=== PATIENT | female | born 1995 | race Caucasian/White ===

== ENCOUNTER 2016-11-07 19:12 | Emergency (ER) | payer BC ==
[~2016-11-07] VITALS: Ht 157.5 cm; Wt 52.3 kg
[2016-11-07] MEDS ORDERED: PRAZ2CAP PO (19:31)
[2016-11-07] MEDS ORDERED: CLONI1TA PO (19:31)
[2016-11-07] MEDS ORDERED: MIRT30TA2 PO (19:31)
[2016-11-07] MEDS ORDERED: BUPR150T5 PO (19:31)
[2016-11-07] MEDS ORDERED: DEPA250T32 PO (19:31)
[2016-11-07] MEDS ORDERED: KETOROLAC 30 MG/ML VIAL (J1885) IV ONE (20:45)
[2016-11-07] MEDS ORDERED: ONDANSETRON 4MG/2ML VIAL (J2405) IV ONE (20:45)
[2016-11-07 21:03] LABS: BASO # 0.2 K/mm3 (0.0-0.2); BASO % 1.5 % (0.0-1.0); EOS # 0.2 K/mm3 (0.0-0.50); EOS % 1.6 % (0.0-3.0); LARGE UNSTAINED CELL # 0.2 K/mm3 (0.0-0.4); LARGE UNSTAINED CELL % 1.4 % (0.0-4.0); LYMPH # 3.3 K/mm3 (1.5-6.5); MEAN CORPUSCULAR HEMOGLOBIN 31.4 pg (27.0-33.0); MEAN CORPUSCULAR VOLUME 89.7 fl (80.0-96.0); MONO # 0.6 K/mm3 (0.0-0.8); MONO % 5.4 % (0.0-5.0); NEUTROPHILS # 6.2 K/mm3 (1.8-7.7); NEUTROPHILS % 59.1 % (36.0-66.0); PLATELET COUNT, AUTOMATED 266 k/mm3 (150-450); WHITE BLOOD COUNT 10.5 K/mm3 (4.0-10.0)
[2016-11-07 21:09] LABS: CONTROL LINE UCG INT CTR LINE PRESENT
[2016-11-07 21:26] LABS: AMYLASE 38 U/L (25-115); ANION GAP 8 MEQ/L (8-16); BLOOD UREA NITROGEN 17 MG/DL (7-18); CALCIUM LEVEL 9.6 MG/DL (8.5-10.1); CARBON DIOXIDE LEVEL 28 MEQ/L (21-32); CHLORIDE LEVEL 104 MEQ/L (98-107); CREATININE FOR GFR 0.81 MG/DL (0.55-1.02); GLOMERULAR FILTRATION RATE > 60.0 (>60); GLUCOSE, FASTING 68 MG/DL (70-105); POTASSIUM SERUM 3.7 MEQ/L (3.5-5.1); SODIUM LEVEL 140 MEQ/L (136-145)
[2016-11-07] MEDS ORDERED: NS 1,000 ML IV ONE (21:30)
--- NOTE | 2016-11-07 22:00 | REPUSA ---
CT of the abdomen and pelvis without contrast Clinical statement: Pain. Technique: Multiple axial CT images were obtained from the base of the lungs to the floor of the pelv is utilizing 5 mm axial slices without administration of contrast. Coronal and sagittal reconstructio ns were also obtained. No comparison is available. Findings: Chest: The visualized lung bases are clear. Abdomen: The kidneys are normal in size bilaterally. There is no evidence of hydronephrosis or nephro lithiasis. The liver, spleen, pancreas, gallbladder and adrenal glands are unremarkable. The aorta de monstrates normal caliber and contour. There is no abdominal lymphadenopathy or ascites. Pelvis: The bowel is unremarkable, with no obstructive or inflammatory changes. The appendix is rolanda l. The urinary bladder is within normal limits. There is no pelvic lymphadenopathy or ascites. The ot her pelvic structures appear unremarkable. Bones: There are no suspicious osseous abnormalities seen. Impression: Unremarkable CT examination of the abdomen and pelvis.
[2016-11-07 22:43] VITALS: BP 116/68
== END 2016-11-07 23:09 | disposition home or self-care (01) ==
LOC: M ED 19:12
DX: R10.12 Left upper quadrant pain (principal); R10.9 Unspecified abdominal pain; R11.2 Nausea with vomiting, unspecified; N83.299 Other ovarian cyst, unspecified side; E05.90 Thyrotoxicosis, unspecified without thyrotoxic crisis or storm; F43.10 Post-traumatic stress disorder, unspecified; F31.9 Bipolar disorder, unspecified; F41.9 Anxiety disorder, unspecified; F17.200 Nicotine dependence, unspecified, uncomplicated; Z79.899 Other long term (current) drug therapy
CPT/HCPCS: 74176; 80048; 81001; 82150; 83690; 84703; 85025; 87086; 96361; 96374; 96375; 99283; J1885; J2405